=== PATIENT | male | born 1965 | race Caucasian/White ===

== ENCOUNTER → 2018-04-06 | Outpatient (CLI) | payer OTHER ==
[2016-03-11 16:18] VITALS: BP 135/99
[~2018-04-06] MED LIST: WARF4TAB64 PO
--- NOTE | 2018-04-06 12:45 | RAD ---
CHEST PA LATERAL dated 04/06/2018 12:32 PM. Comparison: 05/18/2006. Clinical Indication: CHEST PAIN ON BREATHING, DIFFICULTY BREATHING Findings: PA and lateral views were obtained. Heart and mediastinal contours are stable. There is mild fullness of the right hilum, unchanged. There are also prominent linear markings at the perihilar regions, similar to prior study. No consolidation or pleural effusion. No pneumothorax. Impression: No acute radiographic abnormality. Perihilar thickening and prominent perihilar linear markings are similar to prior study. Acute or chronic bronchial inflammatory process is not excluded. Electronically signed by: Reji Alfredo MD (04/06/2018 12:42 PM) [id number]
[2018-04-06 12:49] LABS: BASO # 0.1 x10^3/uL (0.0-0.2); BASO % 0 % (0-3); EOS # 0.3 x10^3/uL (0.0-0.7); EOS % 2 % (0-3); HEMOGLOBIN 15.3 g/dL (13.0-17.5); LYMPH # 2.5 x10^3/uL (1.0-4.8); LYMPH % 18 % (24-48); MEAN CORPUSCULAR HEMOGLOBIN 27 pg (25-35); MEAN CORPUSCULAR HGB CONC 33 g/dL (31-37); MEAN CORPUSCULAR VOLUME 81 fL (79-100); MONO # 1.2 x10^3/uL (0.0-1.1); MONO % 8 % (0-9); NEUT % 71 % (31-73); PLATELET COUNT 42 x10^3/uL (140-400); RED BLOOD COUNT 5.65 x10^6/uL (4.30-5.70); RED CELL DISTRIBUTION WIDTH 13.7 % (11.5-14.5); WHITE BLOOD COUNT 14.1 x10^3/uL (4.0-11.0)
[2018-04-06 13:09] LABS: ALBUMIN 3.6 g/dL (3.4-5.0); CALCIUM 8.9 mg/dL (8.5-10.1); CREATININE 0.9 mg/dL (0.7-1.3); POTASSIUM 4.2 mmol/L (3.5-5.1); TOTAL BILIRUBIN 0.3 mg/dL (0.2-1.0); TOTAL PROTEIN 7.3 g/dL (6.4-8.2)
== END | disposition home or self-care (01) ==
LOC: LAB 12:11
PROVIDERS: ATTEND Family Medicine
DX: R07.1 Chest pain on breathing (principal); Z86.711 Personal history of pulmonary embolism
CPT/HCPCS: 36415; 71046; 80053; 83880; 84484; 85025; 85379

== ENCOUNTER → 2018-04-23 | Outpatient (CLI) | payer OTHER ==
[2016-03-11 16:18] VITALS: BP 135/99
--- NOTE | 2018-04-23 11:33 | RAD ---
Left Lower Extremity Venous Doppler Ultrasound Indication: Left calf pain and swelling. Comparison: None. Procedure: Color Doppler, spectral Doppler, and grayscale images with and without compression are obtained in the area of the common femoral vein, superficial femoral vein - femoral vein junction, main femoral vein (superficial femoral vein) and popliteal vein. Veins of the proximal calf are also imaged. Findings: Occlusive deep venous thrombosis can be seen involving the left femoral vein of the distal thigh as well as involving the left popliteal vein. Given occlusive nature, thrombosis may be acute. Impression: Deep venous thrombosis involving left popliteal vein and portions of the left femoral vein. Electronically signed by: Reji Méndez MD (04/23/2018 11:30 AM) [facility]
== END | disposition home or self-care (01) ==
LOC: US 10:52
PROVIDERS: ATTEND Family Medicine
DX: I82.432 Acute embolism and thrombosis of left popliteal vein (principal); I82.412 Acute embolism and thrombosis of left femoral vein
CPT/HCPCS: 93971

== ENCOUNTER → 2019-01-23 | Outpatient (CLI) | payer OTHER ==
[2016-03-11 16:18] VITALS: BP 135/99
--- NOTE | 2019-01-23 15:04 | RAD ---
Examination: Ultrasound right upper extremity venous duplex HISTORY: History of right forearm bruise COMPARISON: None available. FINDINGS: The visualized internal jugular vein, subclavian vein, cephalic vein, axillary, basilic, brachial ulnar, radial veins are patent. In the region of the right midforearm there is a 8.5 mm hypoechogenicity at the site of bruising, nonspecific could be a small hematoma. IMPRESSION: 1. No evidence of deep venous thrombosis right upper extremity venous system. 2. In the region of the right midforearm, there is a 8.5 mm hypoechogenicity at the site of bruising, nonspecific could be a small hematoma. Electronically signed by: Norris Fernandez MD (01/23/2019 3:02 PM) [place] [id number]
== END | disposition home or self-care (01) ==
LOC: US 13:47
PROVIDERS: ATTEND Internal Medicine
DX: M79.89 Other specified soft tissue disorders (principal); D69.3 Immune thrombocytopenic purpura; Z86.711 Personal history of pulmonary embolism; Z79.01 Long term (current) use of anticoagulants
CPT/HCPCS: 93971

== ENCOUNTER → 2019-05-16 | Outpatient (CLI) | payer OTHER ==
[2016-03-11 16:18] VITALS: BP 135/99
--- NOTE | 2019-05-20 13:23 | RAD ---
MR#: [id number] Date of Study: 05/16/2019 Ordering Physician: CHITRA AKERS, Referring Physician: CHITRA AKERS, Tech: Tamia Childs RDMS, RVT, RTR APPROVED REPORT Patient Location : OUT-PATIENT Indications History of DVT Skin Changes Venous Insufficiency; Greater Saphenous Veins (GSV) Significant venous relux noted in the RIGHT GSV at the following levels : Superficial Femoral Junctio n, Proximal Thigh, Mid Thigh, Distal Thigh, Proximal Calf, Mid Calf, Distal Calf Significant venous relux noted in the LEFT GSV at the following levels : Superficial Femoral Junction , Proximal Thigh, Mid Thigh, Distal Thigh, Proximal Calf, Mid Calf, Distal Calf Findings The right great saphenous vein measures 6.9 mm and the left great saphenous vein measures approximate ly 8 mm. The maximum reflux time on the right side is 2 second. The maximum reflux time on the left s dedrick is 2.8 seconds. The bilateral lesser saphenous veins do not show any obvious evidence of reflux. Critical Notification Critical Value: No <Conclusion> 1. Positive for reflux in the bilateral greater saphenous veins. Signed by : Chitra Akers, Electronically Approved : 05/16/2019 17:29:30
--- NOTE | 2019-05-20 13:23 | RAD ---
MR#: [id number] Date of Study: 05/16/2019 Ordering Physician: CHITRA AKERS, Referring Physician: CHITRA AKERS, Tech: Tamia Childs RDMS, RVT, RTR APPROVED REPORT Bilateral Lower Extremity Venous Study for DVT Patient Location: OUT-PATIENT Indications DVT of Lower Extremity:Left Venous Insufficiency; Leg discoloration Findings Grayscale images of the bilateral lower extremity deep veins were obtained. On the right side no obvi ous thrombus is noted in the common femoral, superficial femoral, popliteal and below-knee veins. On the left side no obvious thrombosis is noted on the common femoral and superficial femoral veins. The popliteal veins are not well visualized and cannot rule out possible small remnant of DVT from pr evious episode. The below-knee veins were also not well visualized. Critical Notification Critical Value: No <Conclusion> 1. Chronic left lower extremity DVT with minimal residual thrombus. Otherwise no new acute thrombus n oted. Signed by : Chitra Akers, Electronically Approved : 05/16/2019 17:24:57
== END | disposition home or self-care (01) ==
LOC: US 08:19
PROVIDERS: ATTEND Internal Medicine Cardiovascular Disease
DX: I74.3 Embolism and thrombosis of arteries of the lower extremities (principal); I87.2 Venous insufficiency (chronic) (peripheral)
CPT/HCPCS: 93970